=== PATIENT | female | born 1970 | race Caucasian/White ===

== ENCOUNTER 2020-02-19 16:30 | Emergency (ER) | payer MEDICARE, MEDICAID ==
[~2020-02-19] VITALS: Ht 177.8 cm; Wt 154.5 kg
[2020-02-19 16:46] VITALS: Ht 177.8 cm; Wt 154.5 kg
[2020-02-19] MEDS ORDERED: GLUCOPHAGE500 MG PO (16:48)
[2020-02-19] MEDS ORDERED: TRIAMTERENE-HC1 EAC3 PO (16:48)
[2020-02-19] MEDS ORDERED: ABILIFY2 MG PO (16:49)
[2020-02-19] MEDS ORDERED: ZOLOFT50 MG PO (16:49)
[2020-02-19] MEDS ORDERED: VICTOZA0.6 MG/0.1 SQ (16:49)
[2020-02-19] MEDS ORDERED: LIPITOR40 MG PO (16:50)
[2020-02-19] MEDS ORDERED: PARLODEL5 MG PO (16:50)
[2020-02-19] MEDS ORDERED: ZETIA10 MG PO (16:53)
[2020-02-19] MEDS ORDERED: PROTONIX40 MG PO (16:53)
[2020-02-19] MEDS ORDERED: PYRIDIUM100 MG PO (17:26)
[2020-02-19] MEDS ORDERED: MACROBID100 MG PO (17:26)
[2020-02-19] MEDS ORDERED: KEFLEX500 MG PO (17:26)
[2020-02-19 17:35] LABS: BILIRUBIN NEGATIVE (NEGATIVE); KETONE NEGATIVE (NEGATIVE); NITRITE NEGATIVE (NEGATIVE); UROBILINOGEN NORMAL mg/dL (< 2)
[2020-02-19 17:38] LABS: BACTERIA MANY /HPF (NONE SEEN); EPITHELIAL CELLS 0-5 /hpf (0-5); WHITE CELLS - URINE 25-50 HPF (0-4)
[2020-02-19 17:50] LABS: BASOPHILS 0.2 % (0-2); EOSINOPHILS 1.8 % (0-7); HEMATOCRIT 36.8 % (36.0-48.0); HEMOGLOBIN 11.7 g/dL (12-16); IMMATURE GRANULOCYTES 0.2 % (0-5); LYMPHOCYTES 18.4 % (15-50); MCH 30.2 pg (26.0-34.0); MCHC 31.8 g/dL (31.0-37.0); MCV 94.8 fL (80.0-100.0); MEAN PLATELET VOLUME 11.3 fL (7.4-10.4); MONOCYTES 6.6 % (2-11); NEUTROPHILS 72.8 % (40-80); PLATELET COUNT 204 10x3/uL (130-400); RBC 3.88 10x6/uL (4.00-5.40); RDW 14.3 % (11.5-14.5); WBC 9.9 10x3/uL (4.8-10.8)
[2020-02-19 18:05] LABS: ANION GAP 9.2 mmol/L (8-16); CALCIUM 8.6 mg/dL (8.5-10.1); CARBON DIOXIDE 27.5 mmol/L (21.0-32.0); CREATININE - SERUM 1.1 mg/dL (0.6-1.3); POTASSIUM - SERUM 3.7 mmol/L (3.5-5.1)
[2020-02-19 18:10] LABS: ALBUMIN 3.4 g/dL (3.4-5.0); BILIRUBIN - TOTAL 0.39 mg/dL (0.2-1.3); PROTEIN - SERUM 7.1 g/dL (6.4-8.2)
== END 2020-02-19 18:35 | disposition home or self-care (01) ==
LOC: D.ER 16:30
PROVIDERS: Family Medicine
DX: N39.0 Urinary tract infection, site not specified (principal); I10 Essential (primary) hypertension; K21.9 Gastro-esophageal reflux disease without esophagitis